=== PATIENT | female | born 1940 | race Caucasian/White ===

== ENCOUNTER 2016-11-21 10:13 | Day surgery (SDC) | payer MEDICARE, OTHER ==
[~2016-11-21] VITALS: Ht 162.6 cm; Wt 76.8 kg
--- NOTE | 2016-11-21 09:04 | PCM.HPANE ---
Patient Data Date of Service: Nov 21, 2016 Surgeon Admitting Provider: Attending Provider:Sunil Perez DO Primary Care Physician:Kadie Yin PA-C Other Provider:Leon Breen Anesthesia Reason for Visit Left Ulnar Ganglion Cyst Ht/WT & BMI Height (Feet): 5 Height (Inches): 4 Weight (Kilograms): 76.84 Body Mass Index 28.00 Allergies Coded Allergies: latex (Verified Allergy, Severe, BLISTERS, 07/28/16) simvastatin (Verified Allergy, Severe, MUSCLE ACHES, 07/28/16) hydroxychloroquine (Verified Allergy, Intermediate, ITCHING/NAUSEA, ) Penicillins (Verified Allergy, Unknown, ITCHING/HYPERVENTILATION/SYNCOPE, 07/28/16) codeine (Verified Allergy, Unknown, "SHORT TEMPERED", 07/28/16) Uncoded Allergies: TRACE METALS (Allergy, Severe, BLISTERS, 07/28/16) LATEX (Allergy, Unknown, RUBBER, 09/11/05) Past Anesthesia History Anesthesia History: Denies:: Abnormal Airway, Anesthesia Reactions, Difficult Intubation, Fam Anesthesia Reaction, Fam Malignant Hypertherm, Malignant Hyperthermia Diabetes History Hx Diabetes?: No MRSA MRSA: No Medications Hypertension Medication: No Home Meds Incl Beta Anthony: No Reported Medications Multivitamin (Multi Vitamin Daily)1 Each Tablet1 Each PO DAILY 30 Days Ref 0 11/16/16 Ca Carb/Vit D3/Mag Ox/Zn Oxide (Flaco Mag Zinc + D3 Tablet)1 Each Tablet1 Each PO DAILY 11/16/16 Levothyroxine (Tirosint)75 Mcg [id number] Mcg PO DAILY 11/16/16 Methotrexate Sodium (Methotrexate)2.5 Mg [id number] Mg PO WEEKLY usually takes on mondays11/16/16 Folic Acid 1 Mg Tablet1 Mg PO DAILY 30 Days 11/16/16 Atorvastatin (Lipitor)10 Mg Tab10 Mg PO DAILY Ref 0 11/16/16 Discontinued Reported Medications Albuterol HFA (Proair HFA)8.5 Gm Hfa.aer.ad2 Puffs INHALATION Q4H PRN For Shortness of Breath #1 INHALER 07/28/16 Beclomethasone Dipropionate (Qvar)8.7 Gm Aer.w.adap2 Puff INHALATION BID PRN For Shortness of Breath #8.7 GM 07/28/16 Levothyroxine (Tirosint)75 Mcg Juaqcwu46 Mcg PO DAILY 07/28/16 PredniSONE 1 Mg Tab2 Mg PO QID Ref 0 07/28/16 Folic Acid 1 Mg Tablet1 Mg PO DAILY 30 Days 07/28/16 Atorvastatin (Lipitor)10 Mg Tab10 Mg PO DAILY Ref 0 07/28/16 Discontinued Scripts Hydrocodone-Acetaminophen 5-325 mg 1 Each Tablet1-2 Tablet PO Q4H PRN For Moderate Pain #60 TABLET Prov:Megan Cheung PA-C 08/04/16 Hydroxyzine Pamoate (HydrOXYzine Pamoate)25 Mg Flxqiub53 Mg PO Q4H PRN For Spasm and/or Restlessness #50 CAPSULE Prov:Megan Cheung PA-C 08/04/16 History History of ENT Problems?: Yes HEENT History: Positive for:: Sinus Problem (seasonal allergies) Denies:: Abnormal Airway Cataracts Difficult Intubation Dysphagia Hearing Problem TMJ Hx of Heart Problems?: No Cardiovascular History: Denies:: Atrial Fibrillation Congestive Heart Failure Edema Heart Murmur Hypertension Pacemaker Rheumatic Fever Hx of Respiratory Problem?: Yes Respiratory History: Positive for:: Dyspnea (USES INHALER ONCE A MONTH) Pneumonia (remote hx of) Denies:: Asthma COPD Cough Oxygen Administration Pulmonary Embolism Tuberculosis Use of C-PAP Machine (refuses use) Hx Neurologic Problems?: Yes Neurological History: Positive for:: Dizziness (OCCASIONAL DIZZINESS) Headaches (ocular migraines- no headaches) Denies:: Alzheimer's Disease CVA Multiple Sclerosis Parkinson's Disease Seizures Hx of GI Problems?: Yes Gastrointestinal History: Positive for:: Gall Bladder Disease (removed) Heartburn Rectal Bleeding (hx of hemorrhoids) Denies:: Cirrhosis Gastroesphageal Reflux Gastrointestinal Bleeding Hx of Problems?: Yes Genitourinary History: Denies:: Kidney Stones Urinary Tract Infection (past hx of- not current) Female Hx: Positive for:: Problems with Breasts? (hx of breast reduction) Skin History: Denies:: History Skin Disorders? Pressure Ulcers Hx Musculoskeletal Problems?: Yes Musculoskeletal History: Positive for:: Joint Replacement (hx of left total knee) Musculoskeletal Trauma (left ulnar nerve mass current admission problem) Osteoarthritis Denies:: Back Injury Degenerative Joint Hx of Psycho/Social Problems?: Yes Psycho Social History: Positive for:: Anxiety Denies:: Bipolar Disorder Hx Depression Hx Surgeries?: Yes (rt rcr, elizabeth, breast reduction, left total knee) Hx Any Other Health Problems?: Yes Other History: Positive for:: Hospitalization (DIZZINESS 2009) Thyroid Disease (on rx) Denies:: Cancer Endocrine Disease History Blood Transfusions: Denies:: Blood Transfusions Hx Diabetes: No Hx Alcohol Use: NoHx Substance Use: No Smoking Status: Former Smoker Have You Smoked inLast 12 mo: No Stop/Bang Treated for Sleep Apnea?: No Do You Have a CPAP Machine?: No S-Snoring: Do You Snore Loudly: No T-Tired: feel tired, fatigued: Yes O-Obsered: Observed not breath: No P-Blood Pressure: treated: No B- Body Mass Index > 35 kg/m2: No A- Age over 50: Yes N- Neck Large Circumference: No G- Gender Male: No SUMAN Total Score: 2 SUMAN Risk Assessment: Low Risk, <3 Yes Risk Assessment Category Category 1A: Patient has history of documented sleep apnea, and HAS NOT received any narcotic, sedative or anesthesia administration during this stay. Category 1B: Patient has history of documented sleep apnea, and HAS received any narcotic , sedative or anesthesia administration during this stay Category 2: Patient has SUSPECTED Obstructive Sleep Apnea, and HAS received any narcotic , sedative or anesthesia administration during this stay. Category 3: Patient has SUSPECTED Obstructive Sleep Apnea and HAS NOT received narcotic, sedative or anesthesia administration during this stay. Category 4: Outpatient in Procedural Areas with known sleep apnea or who screen positive for High Risk via the STOP/BANG questionnaire. Exam Exam General Appearance: Alert, Oriented X3, Cooperative HEENT/AIRWAY: MP 2 (Upper incisor caps) Lungs: Clear to Auscultation, Normal Air Movement Heart: Exam Unremarkable, Normal S1, Normal S2, No Murmurs/Rubs/Gallops Plan Impression Patient chart reviewed, patient interviewed and anesthestic plan with risks, benefits, and alternatives discussed, and informed consent obtained. NPO Status: 0630 sips with meds ASA Physical Status: ASA2 Mod Systemic Disease Anesthetic Plan: MAC, Regional Block (Jorden block) Bene/Risks/Altern/Consents: Yes HP Complete Prior to Induction: Yes Leland Denis DO Nov 21, 2016 09:04
[~2016-11-21 10:13] MED LIST: ATRV10T PO; CA C1TAB77 PO; FOLI1TAB18 PO; LEVO75CA2 PO; Lactated Ringer's 1,000 ML IV SCH; METH2.5T PO; MULT-1018 PO
[2016-11-21] MEDS ORDERED: Propofol 10,000 mCg/mL 20 mL Inj ONE (10:14)
[2016-11-21 11:16] VITALS: BP 126/75; PULSE 70; RESP 16; O2SAT 100
[2016-11-21] MEDS ORDERED: Lactated Ringer's 1,000 ML IV ONE (11:22)
[2016-11-21] MEDS ORDERED: Lactated Ringer's 1,000 ML IV SCH (13:29)
[2016-11-21] MEDS ORDERED: Lactated Ringer's 500 ML IV PRN (13:29)
[2016-11-21] MEDS ORDERED: Ondansetron 2 mg/mL 2 mL Inj IVPUSH PRN (13:30)
[2016-11-21] MEDS ORDERED: HYDROmorphone 1 mg/mL Inj IVPUSH PRN (13:30)
[2016-11-21] MEDS ORDERED: Dexamethasone 4 mg/mL Inj IVPUSH PRN (13:30)
[2016-11-21] MEDS ORDERED: Atropine 0.4 mg/mL Inj IVPUSH PRN (13:30)
[2016-11-21] MEDS ORDERED: Labetalol 5 mg/mL 4 mL Inj IV PRN (13:30)
[2016-11-21] MEDS ORDERED: MetoCLOpramide 5 mg/mL 2 mL Inj IVPUSH PRN (13:30)
[2016-11-21] MEDS ORDERED: fentaNYL-PF 50 mCg/mL 2 mL Inj IVPUSH PRN (13:30)
[2016-11-21] MEDS ORDERED: EPHEDrine Sulfate 50 mg/mL Inj IVPUSH PRN (13:30)
[2016-11-21] MEDS ORDERED: Phenylephrine 10,000 mCg/mL Inj IVPUSH PRN (13:30)
[2016-11-21] MEDS ORDERED: Ropivacaine-PF 0.5% 30 mL Inj INFILTRATE ONE (13:31)
[2016-11-21 14:00] VITALS: BP 126/68; PULSE 80; RESP 16; O2SAT 97
[2016-11-21] MEDS ORDERED: Ketorolac 15 mg/mL Inj IVPUSH ONE (14:25)
[2016-11-21] MEDS ORDERED: hydrOXYzine Pamoate 25 mg Capsule PO PRN (14:25)
[2016-11-21] MEDS ORDERED: HYDROcodone-APAP 5-325 mg Tablet PO PRN (14:25)
[2016-11-21 15:05] VITALS: BP 116/74; PULSE 68; RESP 17; O2SAT 99
--- NOTE | 2016-11-21 15:45 | PCM.ANEP1 ---
Post Anesthesia Phase 1 PACU Phase 1 Assessment Date of Service: Nov 21, 2016 Vital Signs Vital Signs Date Time Temp Pulse Resp B/P Pulse Ox O2 Delivery O2 Flow Rate FiO2 11/21/16 15:05 36.6 68 17 116/74 99 Room Air 11/21/16 14:00 36.6 80 16 126/68 97 Room Air 11/21/16 11:16 36.1 70 16 126/75 100 Room Air Anesthetic Administered: MAC, Regional Block (ACB) Level of Alertness: Awake, talking DC's with Equal Strength: Yes Pain: No Nausea or Vomiting: No Lungs: Clear to Auscultation, Normal Air Movement Dermatome Level: Full Sensation (C/W ACB Postoperatively) Leland Denis DO Nov 21, 2016 15:45
--- NOTE | 2016-11-21 16:33 | PCM.ANEP2 ---
Post Anesthesia Evaluation ASA/CMS Post Anesthesia Date of Service: Nov 21, 2016 VS in Patient's Normal Range?: Yes Resp Stable; Airway Patent?: Yes CV Function & Hydration Stable: Yes Mental Status Recovered?: Yes Pain control Satisfactory?: Yes N/V Control Satisfactory?: Yes Leland Denis DO Nov 21, 2016 16:33
--- NOTE | 2016-11-21 17:04 | OP ---
[address] [address] OPERATIVE REPORT PATIENT: SMAANTHA NGO : 1940 MR#: [id number] ADMIT: 11/21/2016 JOB ID: [id number] DATE OF SURGERY: 11/21/2016 PREOPERATIVE DIAGNOSIS(ES): Left off ulnar wrist mass. 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 PROCEDURE: Left wrist ulnar ganglion cyst removal with varicose vein resection. SURGEON: Sunil Perez DO. ANESTHESIA: IV regional. INDICATIONS: The patient is a 76-year-old female with a painful, bothersome left ulnar wrist mass who wished to have this surgically removed. We discussed treatment options for this and she wished to have it surgically removed. We discussed risks, benefits, and possible complications of surgery. All questions were answered. She wished to proceed. PROCEDURE IN DETAIL: The patient is brought to the operating room. She was given preoperative IV regional anesthetic. The left wrist was sterilely prepped and draped. An incision was made centered over the wrist which is on the dorsal ulnar aspect of the wrist. Dissection was carefully carried through the subcutaneous tissue. She was noted to have a large dilated varicose vein in this area and a ganglion cyst immediately beneath of it and adherent to it. I placed two ties at the vein and then resected out the varicose section and then carefully dissected out the ganglion cyst which did rupture during the course of removal with some characteristic gelatinous material coming from the cyst. The wound was then irrigated and closed with 3-0 Vicryl for the subcuticular, and the skin was closed with interrupted 4-0 nylon suture in horizontal mattress fashion. Some local anesthetic Ropivacaine was added and sterile dressings and ulnar gutter splint were applied. Patient tolerated the procedure well. Blood loss was minimal. Postoperative protocol: Have the patient maintain her dressing for two weeks and then follow up in the clinic. We will have her ice and elevate and she was not given any prescriptions for pain medication as she had some remaining from her total knee arthroplasty.
--- NOTE | 2016-11-23 10:54 | PATH ---
SURGICAL PATHOLOGY Attending Physician:Sunil Perez DO CASE STATUS: Signed Out PATIENT NAME: SAMANTHA NGO PID: [id number] : 1940 DATE COLLECTED:11/21/2016 00:00 SPECIMEN: Ganglion Cyst CLINICAL HISTORY: LEFT WRIST GANGLION 1). LEFT WRIST GANGLION FINAL DIAGNOSIS: 1.LEFT WRIST GANGLION: GANGLION CYST. ICD10 CODE M67.4 GROSS DESCRIPTION: The specimen is received in one formalin filled container labeled with the patient's name, sublabeled "ganglion L. wrist" and consists of 2 portions of tissue which aggregate to 0.9 x 0.5 x 0.5 CM. The specimen is inked blue. The specimen is sectioned into 4 total pieces entirely submitted in one cassette. 11/22/2016 [facility] MICRO DESCRIPTION: See diagnosis. ICD-9 CODES: CPT CODES: 1: 37865 Electronically Signed Out Daily Brady MD [facility] [address], [place] [address] Technical component performed at [facility], [address] [place] [address] Ave[address], [place], [address]
== END 2016-11-21 23:59 | disposition home or self-care (01) ==
LOC: SAS 10:13
PROVIDERS: ATTEND Orthopaedic Surgery
DX: M67.432 Ganglion, left wrist (principal); F41.9 Anxiety disorder, unspecified; M17.12 Unilateral primary osteoarthritis, left knee; Z96.652 Presence of left artificial knee joint; Z79.82 Long term (current) use of aspirin; Z87.891 Personal history of nicotine dependence; I86.8 Varicose veins of other specified sites
CPT/HCPCS: 25111; 88304; J2250; J2795; J7120